=== PATIENT | female | born 2000 | race Two or more races ===

== ENCOUNTER 2024-06-04 23:44 | Emergency (ER) | payer OTHER ==
[~2024-06-04] VITALS: Ht 152.4 cm; Wt 45.4 kg
[~2024-06-04 23:44] MED LIST: CELEBREX200MG PO
== END 2024-06-05 | disposition left against medical advice (07) ==
LOC: ER 23:44
DX: Z53.21 Procedure and treatment not carried out due to patient leaving prior to being seen by health care provider (principal)